=== PATIENT | female | born 1950 ===

== ENCOUNTER 2020-07-13 08:15 | Inpatient (IN) | payer OTHER ==
[~2020-07-13] VITALS: Ht 167.6 cm; Wt 88.9 kg
[2020-07-13] MEDS ORDERED: TOPROL XL50 M1 PO (10:15)
[2020-07-13] MEDS ORDERED: SYNTH PO (10:15)
[2020-07-13] MEDS ORDERED: GLIPIZIDE XL5 MG PO (10:15)
[2020-07-13] MEDS ORDERED: CRESTOR40 MG PO (10:16)
[2020-07-13] MEDS ORDERED: COZAAR100 MG PO (10:16)
[2020-07-13] MEDS ORDERED: LIPIT PO (10:16)
[2020-07-20] MEDS ORDERED: ATORVASTATIN CA40 MG (08:04)
[2020-07-20] MEDS ORDERED: LEVOTHYROXINE50 MCG (08:04)
[2020-07-22] MEDS ORDERED: DUI500 PO (10:37)
[2020-07-22] MEDS ORDERED: PERCOCET 5-3251 EACH PO (10:37)
[2020-07-22] MEDS ORDERED: ELIQUIS2.5 MG PO (10:37)
== END 2020-07-22 13:25 | DRG 470 ==
LOC: O/R 07-20 06:00 → SURH 07-20 06:00 → EDSEX 07-20 08:15 → SURH 07-20 10:30
PROVIDERS: ADMIT Orthopaedic Surgery; ATTEND Orthopaedic Surgery
PROC: 0SRD0J9 Replacement of Left Knee Joint with Synthetic Substitute, Cemented, Open Approach (ICD-10-PCS; principal; 2020-07-20 10:30)
DX: M17.12 Unilateral primary osteoarthritis, left knee (principal); D62 Acute posthemorrhagic anemia; I10 Essential (primary) hypertension; E11.9 Type 2 diabetes mellitus without complications; Z79.84 Long term (current) use of oral hypoglycemic drugs